=== PATIENT | male | born 1950 | race African-American/Black ===

== ENCOUNTER 2021-08-24 15:35 | Emergency (ER) | payer MEDICARE, MEDICAID ==
[~2021-08-24] VITALS: Ht 170.2 cm; Wt 90.0 kg
[2021-08-24 16:45] LABS: BASOPHILS % 0.1 % (0.0-2.0); HEMATOCRIT. 41.4 % (42.0-52.0); HEMOGLOBIN. 14.1 g/dL (14.0-18.0); LYMPHOCYTES % 7.7 % (20.0-50.0); MEAN CORPUSCULAR HEMOGLOBIN 30.4 pg (28.0-32.0); MEAN CORPUSCULAR VOLUME 89.5 fL (80.0-94.0); MEAN PLATELET VOLUME 8.2 fl (7.4-10.4); MONOCYTES % 7.2 % (2.0-8.0); PLATELET 214 x1000/uL (130-400); RED BLOOD CELL COUNT 4.62 mill/uL (4.7-6.1); RED CELL DISTRIBUTION WIDTH 13.8 % (11.6-14.6)
[2021-08-24 17:21] LABS: CREATINE KINASE 1444 IU/L (39-308); ETHANOL BLOOD < 10 mg/dL
[2021-08-24 17:28] LABS: CHLORIDE 106 mEq/L (98-107)
[2021-08-24 17:31] VITALS: BP 138/54
== END 2021-08-24 17:32 | disposition home or self-care (01) ==
LOC: ER 15:35
DX: T40.991A Poisoning by other psychodysleptics [hallucinogens], accidental (unintentional), initial encounter (principal); F16.129 Hallucinogen abuse with intoxication, unspecified; R40.0 Somnolence; R45.1 Restlessness and agitation; R91.8 Other nonspecific abnormal finding of lung field; Y92.480 Sidewalk as the place of occurrence of the external cause
CPT/HCPCS: 36415; 71045; 80053; 80307; 80320; 80329; 82140; 82550; 85025; 93005; 99285; G0480